=== PATIENT | female | born 1955 | race Caucasian/White ===

== ENCOUNTER 2020-08-29 15:27 | Emergency (ER) | payer BC, SELFPAY ==
--- NOTE | ~2020-08-29 | CT_ITS ---
EXAMINATION: CT abdomen pelvis w con DATE: 08/29/2020 18:37 INDICATION: Left ureteral stone TECHNIQUE: Computed tomography (CT) of the abdomen and pelvis was performed with 130 cc Omnipaque 350 intravenous contrast. The dose-length product was 881.38 mGy-cm. Automated exposure control and iter ative reconstruction technique were employed. COMPARISON: CT dated 08/29/2020. FINDINGS: Heart size normal. No significant pleural or pericardial effusion. The liver, spleen, pancr eas, adrenal glands and left kidney are unremarkable. There is a right renal cyst measuring 2.4 cm. U reters are normal in course and caliber. There is a 9 x 4 mm stone in the bladder lumen. Gallbladder is present. Nonobstructive bowel gas pattern. IMPRESSION: 1. 9 mm bladder stone. Reviewed, dictated and finalized at location A. IMPRESSION: 1. 9 mm bladder stone.
--- NOTE | ~2020-08-29 | CT_ITS ---
EXAMINATION: CT abdomen pelvis wo con DATE: 08/29/2020 16:01 INDICATION: Flank pain. TECHNIQUE: Computed tomography (CT) of the abdomen and pelvis was performed without intravenous contr ast. The dose-length product was 183.07 mGy-cm. Automated exposure control and iterative reconstructi on technique were employed. COMPARISON: CT abdomen dated 01/13/2016 FINDINGS: Lung bases are unremarkable. Heart size is normal. No significant pleural or pericardial ef fusion. No significant vascular abnormality. No lymphadenopathy. Nonobstructive bowel gas pattern. Th ere is an 11 mm calcification near the expected location of the left UVJ. There is moderate left hydr oureteronephrosis. There is a 6 mm left renal stone. The liver, spleen, pancreas, adrenal glands and right kidney are unremarkable. Nonobstructive bowel g as pattern. There is a fat-containing umbilical hernia. There is mild superior endplate compression d eformity of L2, likely chronic. IMPRESSION: 1. Probable left UVJ stone versus bladder stone measuring 11 mm near the left UVJ. Moderate left hydr onephrosis. 2: Left nephrolithiasis. Reviewed, dictated and finalized at location A. IMPRESSION: 1. Probable left UVJ stone versus bladder stone measuring 11 mm near the left U VJ. Moderate left hydronephrosis. 2: Left nephrolithiasis.
--- NOTE | ~2020-08-29 | XR_ITS ---
XR abdomen/kub 1V 08/29/2020 16:06 INDICATION: Flank pain TECHNIQUE: KUB COMPARISON: CT dated 08/29/2020 FINDINGS: Bowel gas pattern is normal. There is no evidence of free air, mass, organomegaly, ascites or obstruction. There is a 9 mm calcification in the left pelvis near the expected location of the U VJ. There is left nephrolithiasis. The bones appear intact. IMPRESSION: 1: Probable left UVJ stone measuring 9 mm. 2: Left nephrolithiasis. Reviewed, dictated and finalized at location A.
[2020-08-29 15:33] VITALS: BP 126/89; PULSE 85; RESP 18; TEMP 36.2; O2SAT 99
[2020-08-29] MEDS: HYDROmorphone HCL INJ (*CRX) 1 MG/ML SYR 0.5 MG IV PUSH (16:07)
[2020-08-29] MEDS: ONDANSETRON INJ 4 MG/2 ML VIAL IV PUSH (16:07)
[2020-08-29] MEDS: SODIUM CHLORIDE 0.9% IV 1,000 ML 150 ML IV CONT (16:08)
[2020-08-29 16:13] LABS: Basophils Absolute Auto 0.1 K/mm3 (0.0-0.1); Eosinophils Absolute Auto 0.1 K/mm3 (0-0.3); Eosinophils Percent Auto 1.2 % (0-4.4); Hematocrit 42.4 % (37.0-47.0); Hemoglobin 14.1 g/dL (12.0-15.0); Immature Granulocyte Absolute 0.01 K/mm3 (0.00-0.031); Immature Granulocyte Percent A 0.1 % (0-0.5); Lymphocytes Absolute Auto 2.83 K/mm3 (0.9-3.2); Lymphocytes Percent Auto 41.1 % (18.3-44.2); Mean Corpuscular HGB Conc 33.3 g/dl (32-36); Mean Corpuscular Hemoglobin 30.1 pg (26-34); Mean Corpuscular Volume 90.6 fl (80-100); Mean Platelet Volume 8.9 fl (7.4-10.4); Monocytes Absolute Auto 0.7 K/mm3 (0.1-0.6); Monocytes Percent Auto 9.7 % (2.6-8.5); Neutrophils Absolute Auto 3.2 K/mm3 (1.3-6.7); Neutrophils Percent Auto 46.9 % (45.5-73.1); Platelet Count Result 317 k/mm3 (150-375); Red Blood Count 4.68 M/mm3 (4.2-5.4); Red Cell Distribution Width 13.3 % (11.5-14.5); White Blood Count 6.9 K/mm3 (4.5-10.0)
[2020-08-29 16:18] LABS: Add Urine Microscopic? YES; Appearance Urine Cloudy (Clear); Bilirubin Urine Negative (Negative); Blood Urine Negative (Negative); Color Urine Amber (Yellow); Glucose Urine UA Negative (Negative); Ketones Urine Negative (Negative); Leukocyte Esterase Ur Negative LEU/UL (Negative); Mucus Urine Rare /lpf; Nitrate Urine Negative (Negative); Protein Urine Negative (Negative); Specific Grav Ur 1.017 (1.001-1.035); Urobilinogen Urine Negative mg/dL (<2.0); WBC Urine 0-3 /hpf
[2020-08-29 16:26] LABS: Alanine Aminotransferase 33 U/L (4-35); Albumin Level 4.4 g/dL (3.5-5.1); Alkaline Phosphatase 109 U/L (38-126); Anion Gap 6 mmol/L (8-16); Aspartate Amino Transferase 33 U/L (14-36); Bilirubin,Total 0.3 mg/dL (0.2-1.3); Blood Urea Nitrogen 17 mg/dL (7-17); Calcium 9.6 mg/dL (8.4-10.2); Carbon Dioxide 30 mmol/L (22-30); Chloride 105 mmol/L (98-107); Estimated CRCL calculation 61 ml/min; Estimated Glomerular Filt Rate > 60; Glucose 112 mg/dL (65-105); Sodium 141 mmol/L (137-145)
[2020-08-29 17:00] VITALS: BP 136/96; PULSE 87; RESP 18; O2SAT 100
--- NOTE | 2020-08-29 18:33 | ED.ABDPAIN ---
HPI - Abdominal Pain General Chief Complaint: Abdominal Pain Stated Complaint: abd pain Time Seen by Provider: 08/29/20 15:40 Source: patient Mode of arrival: ambulatory Limitations: no limitations History of Present Illness HPI narrative: 64-year-old with a history of kidney stones and diverticulosis here with complaints of sudden onset of left flank pain radiating into her left groin since this afternoon. Patient stated her pain was very intense however it is kind of subsiding on her way to the ER. She denies any fever or chills however she complained of nausea last night. MD elicited complaint: abdominal pain (left lower abd) and flank pain (left) Pertinent past history: diverticulitis and kidney stones Onset (ago): hour(s) (4) Pain Consistency: constant Severity: moderate Quality: stabbing Radiation: LLQ Relieving factors: nothing Associated symptoms: nausea Related Data Home Medications Medication Instructions Recorded Confirmed estradiol 10 mcg vaginal insert 10 mcg VAGINAL 2XW 03/04/20 03/04/20 lisinopril 10 mg tablet 10 mg PO DAILY 03/04/20 03/04/20 Allergies Allergy/AdvReac Type Severity Reaction Status Date / Time codeine Allergy Unknown Unknown Verified 08/29/20 15:44 hydrocodone Allergy Unknown migraine Verified 08/29/20 15:44 morphine Allergy Unknown headache Verified 08/29/20 15:44 Penicillins Allergy Unknown Unknown Verified 08/29/20 15:44 Sulfa (Sulfonamide Allergy Unknown Unknown Verified 08/29/20 15:44 Antibiotics) Review of Systems Review of Systems: All systems reviewed & are unremarkable except as noted in HPI and below Constitutional: Constitutional: Reports no additional constitutional complaints Eyes: Eyes: Reports no additional eye complaints ENT: Reports system reviewed and no additional complaints, except as documented Cardiovascular: Cardiovascular: Reports no additional cardiovascular complaints Respiratory: Respiratory: Reports no additional respiratory complaints Gastrointestinal: Gastrointestinal: Reports no additional gastrointestinal complaints Genitourinary: Genitourinary: Reports as per HPI Neurologic: Reports system reviewed and no additional complaints, except as documented PMF Past Medical History Medical History H/O vaginal delivery x2 History of herniated intervertebral disc History of ovarian cyst Hypertension Kidney stones Surgical History Surgical History H/O neck surgery History of removal of ovarian cyst Previous back surgery Family History Family History Mother Family history of hypercholesterolemia, Onset Age: 88 Hypertension, Onset Age: 88 Father Family history of hypercholesterolemia, Onset Age: 79 Social History Social History Smoking status: Never smoker Second hand tobacco smoke exposure: No Alcohol intake: current Gender identity (if verbalized by the patient): Female Exam Narrative: Exam Narrative: GENERAL: Well-appearing, well-nourished, and in no acute distress. HEAD: Normocephalic, atraumatic. EYES: PERRLA and EOMI NECK: Supple. CHEST: Clear to auscultation. No respiratory distress. HEART: Regular rate and rhythm. No murmur heard. Normal peripheral pulses. ABDOMEN: Soft, mild tenderness in the LLQ, nondistended, normal active bowel sounds. EXTREMITIES: Normal range of motion. No edema. SKIN: Warm, dry, no rash. NEURO: No focal deficits. Alert and oriented x3. PSYCH: Normal mood and affect. Course Course Emergency Course: Patient is much improved after the pain medication and IV fluids I did discuss lab and CT findings with the patient and with Dr. Youssef she recommended CT urethrogram. Repeat CT urogram showed 9 mm stone in the urinary bladder. Patient states that she i
[2020-08-29 19:32] VITALS: BP 128/85; PULSE 80; RESP 16; TEMP 36.8; O2SAT 99
== END 2020-08-29 19:33 | disposition home or self-care (01) ==
PROVIDERS: Emergency Provider Family Medicine; PCP Family Medicine
DX: N13.2 Hydronephrosis with renal and ureteral calculous obstruction (principal); I10 Essential (primary) hypertension; Z87.442 Personal history of urinary calculi; K57.90 Diverticulosis of intestine, part unspecified, without perforation or abscess without bleeding
CPT/HCPCS: 36415; 74018; 74176; 74177; 74178; 80053; 81001; 82365; 85025; 88300; 96361; 96374; 96375; 99284; J1170; J2405; J7030; Q9967

== ENCOUNTER 2023-03-29 19:19 | Emergency (ER) | payer OTHER, SELFPAY ==
--- NOTE | ~2023-03-29 | XR_ITS ---
XR shoulder LT min 2V 03/29/2023 22:16 Indication: Left shoulder fracture Procedure: 3 views left shoulder Comparison: No prior studies for comparison. Findings: There is a mildly displaced comminuted left humeral neck fracture with involvement of the g reater tuberosity. Impression: 1: Comminuted mildly displaced left humeral neck fracture. Reviewed, dictated and finalized at location A. Impression: 1: Comminuted mildly displaced left humeral neck fracture.
[2023-03-29 20:03] VITALS: BP 163/98; PULSE 77; RESP 16; TEMP 36.3; O2SAT 100
--- NOTE | 2023-03-29 23:52 | ED.GENADULT ---
HPI - General Adult General Chief complaint: Fall Stated complaint: fall, shoulder pain Time Seen by Provider: 03/29/23 23:32 History of Present Illness HPI narrative: Patient is 67-year-old female who presents the emergency department with chief complaint of left shoulder pain status post fall. Patient reports that she was moving her grandkids around with a wagon wearing flip-flops and tripped and fell the patient reports she landed on her left upper extremity and reports pain in her left shoulder patient reports she has an abrasion to the palm of her hand her left forehead and also her right great toe. Patient reports no loss of consciousness denies being on blood thinners. Related Data Home Medications Medication Instructions Recorded Confirmed multivitamin (Daily Multi-Vitamin 1 tablet PO DAILY 03/10/21 12/20/22 tablet) Allergies Allergy/AdvReac Type Severity Reaction Status Date / Time codeine Allergy Unknown Unknown Verified 12/20/22 10:33 hydrocodone Allergy Unknown migraine Verified 12/20/22 10:33 morphine Allergy Unknown headache Verified 12/20/22 10:33 Penicillins Allergy Unknown Unknown Verified 12/20/22 10:33 Sulfa (Sulfonamide Allergy Unknown Unknown Verified 12/20/22 10:33 Antibiotics) Review of Systems Review of Systems: A 10 system review of systems was completed on the patient and is negative except for what is stated in the HPI. Nursing and ancillary documentation was reviewed. [facility] Past Medical History Medical History Depression Essential (primary) hypertension History of herniated intervertebral disc History of ovarian cyst Hypertension Kidney stones Major depressive disorder, recurrent, in partial remission Mixed hyperlipidemia Surgical History Surgical History H/O neck surgery H/O vaginal delivery x2 History of hysterectomy History of removal of ovarian cyst Previous back surgery Family History Family History Mother Family history of hypercholesterolemia, Onset Age: 88 Hypertension, Onset Age: 88 Father Family history of hypercholesterolemia, Onset Age: 79 Social History Social History Smoking status: Never smoker Second hand tobacco smoke exposure: No Alcohol intake: current Substance use: never Lack of Transportation: No Lack of Food: Never True Current Housing: I Have Housing Concerned About Future Housing: No Difficulty Paying Gas/Electric Bills: No Difficulty Paying for Meds: No Currently Unemployed: No Education: Trade/Vocational Certificate Difficulty w/ Childcare or Family Care: No Living arrangements: with family Occupation/Education: retired Gender identity (if verbalized by the patient): Female Sexual Orientation (if Verbalized by the Patient): Straight or Heterosexual Spiritual care concerns: No Exam Narrative: GENERAL: Well-appearing, well-nourished, and in no acute distress. HEAD: Normocephalic, small abrasion to the left eyebrow. EYES: PERRLA and EOMI. ENT: Nares clear, no rhinorrhea or epistaxis. Mucous membranes moist. NECK: Supple. CHEST: Clear to auscultation. No respiratory distress. HEART: Regular rate and rhythm. No murmur heard. Normal peripheral pulses. ABDOMEN: Soft, nontender, nondistended, normal active bowel sounds. EXTREMITIES: Normal range of motion tenderness to palpation of the left shoulder, there is an abrasion present to the palm of the left hand there is an abrasion present to the right great toe. No edema. SKIN: Warm, dry, no rash. NEURO: No focal deficits. Alert and oriented x3. PSYCH: Normal mood and affect. Course Vital Signs Vital signs: Vital Signs Temperature 36.3 C L 03/29/23 20:03 Pulse
[2023-03-30] MEDS: oxyCODONE/ACETAMINOPHEN (*CRX) 5-325 MG TABLET 1 TABLET PO (00:09)
--- NOTE | 2023-03-30 00:47 | PC.NURSE ---
Pain to L shoulder. PMS intact. Pt brought sling from home.
[2023-03-30 01:35] VITALS: BP 152/81; PULSE 87; RESP 16; O2SAT 100
== END 2023-03-30 01:00 | disposition home or self-care (01) ==
PROVIDERS: Emergency Provider Emergency Medicine; PCP Family Medicine
DX: S42.212A Unspecified displaced fracture of surgical neck of left humerus, initial encounter for closed fracture (principal); S60.512A Abrasion of left hand, initial encounter; S00.81XA Abrasion of other part of head, initial encounter; S90.411A Abrasion, right great toe, initial encounter; I10 Essential (primary) hypertension; E78.2 Mixed hyperlipidemia; F33.41 Major depressive disorder, recurrent, in partial remission; Z87.442 Personal history of urinary calculi; Z90.710 Acquired absence of both cervix and uterus; W18.39XA Other fall on same level, initial encounter
CPT/HCPCS: 73030; 99284; A9270

== ENCOUNTER 2024-02-22 12:50 | Outpatient (CLI) | payer OTHER, SELFPAY ==
--- NOTE | ~2024-02-22 | DEXA_ITS ---
Bone Density Report Name: MARLY NARAYANAN Age: 68 Sex: Female Ethnicity: White Date of : 1955 Indication: postmenopausal; screening for osteoporosis; history of glucocorticoids; hysterectomy; Referring Provider: MARCEL, ROBERT Carmona Study: Bone densitometry was performed. Exam Date: February 22, 2024 Accession number: [id number] Bone Density: Region BMD T-score Z-score Classification AP Spine(L1-L4) 0.865 -1.7 0.2 Osteopenia Femoral Neck (Left) 0.663 -1.7 -0.1 Osteopenia Total Hip (Left) 0.844 -0.8 0.5 Normal Femoral Neck (Right) 0.640 -1.9 -0.3 Osteopenia Total Hip (Right) 0.734 -1.7 -0.4 Osteopenia Total Hip Mean 0.789 -1.3 0.1 Osteopenia World Health Organization criteria for BMD impression classify patients as: Normal (T-score at or above -1.0), Osteopenia (T-score between -1.0 and -2.5), or Osteoporosis (T-score at or below -2.5). 10-year Fracture Risk(1): Major Osteoporotic Fracture 16% Hip Fracture 2.5% Reported Risk Factors: [place] (), Neck BMD=0.640, BMI=28.4, glucocorticoids (1) FRAX(R) Version 3.08. Fracture probability calculated for an untreated patient. Fracture probability may be lower if the patient has received treatment. Clinical Information Provided by Patient: Has taken Glucocorticoids Has used the following medications: Vitamin D, Calcium Has the following medical conditions: Hysterectomy Patient maximum height was 64 Menopause Age: 38 No regular weight bearing exercise Drinks caffeinated beverages Onset of menses at age 12 Number of children 2 Impression: The patient has low bone mass, based on the Right Femoral Neck T-score. The patient has an estimated ten-year risk of hip fracture of 2.5% and an estimated ten-year risk of major fracture of 16%, based on the WHO FRAX algorithm. The patient has risk factors, including: history of glucocorticoid therapy. Discussion: BONE DENSITY IS LOW AT ONE OR MORE SKELETAL SITES. This patient's lowest T-score is low at one or more skeletal sites. It meets the World Health Organization's (WHO) criteria for ?low bone mass? (T-score between -1.0 and -2.5). The patient's 10-year risk of fracture as calculated by FRAX is less than the threshold where pharmacological therapy is recommended by the National Osteoporosis Foundation (NOF). However, all treatment decisions require clinical judgment and consideration of individual patient factors, including patient preferences, comorbidities, previous drug use, risk factors not captured in the FRAX model (e.g., frailty, falls, vitamin D deficiency, increased bone turnover, interval significant decline in bone density) and possible under or overestimation of fracture risk by FRAX. The patient should follow a healthful lifestyle (good nutrition with adequate calcium and
== END 2024-02-22 12:51 | disposition home or self-care (01) ==
LOC: ANHIMG 12:52
PROVIDERS: PCP Family Medicine; Visit Provider Physician Assistant
DX: M85.89 Other specified disorders of bone density and structure, multiple sites (principal); Z78.0 Asymptomatic menopausal state; Z13.820 Encounter for screening for osteoporosis
CPT/HCPCS: 77080

== ENCOUNTER 2024-09-19 08:49 | Outpatient (CLI) | payer OTHER, SELFPAY ==
--- NOTE | ~2024-09-19 | MM_ITS ---
EXAMINATION: MM screening delbret BI w sy[place]ney HISTORY: Screening TECHNIQUE: Craniocaudal and mediolateral oblique 3-D tomosynthesis images were obtained and synthetic 2-D images were generated. CAD analysis was submitted and interpreted. COMPARISON: No prior mammogram is available for comparison at this institution. BREAST PARENCHYMAL COMPOSITION: Not dense: There are scattered areas of fibroglandular density. FINDINGS: There is no evidence of suspicious mass, calcification, or architectural distortion to sugg est malignancy in either breast. There has been no suspicious interval change. IMPRESSION: 1. No mammographic evidence of malignancy. 2. Recommend routine screening mammography in one year. BI-RADS Category 1: Negative Reviewed, dictated and finalized at location A.
--- OUTSIDE RECORDS SUMMARY | 2024-09-19 08:57 | XMS_ITS | Clinical Summary ---
Author Organization [facility] Address [address] [place] [address] Care Team Providers Care Cane Feeder Name Role Phone Kiah Fox MD Unavailable [phone] Arthur Luna MD Primary Care Provider [phone] Source Comments [facility],non-owned Affiliates and Associated Physician Practices is amultiple site organization consisting of ambulatory clinics and hospital sitesin [place], [place], [place] and [place]. This disclosure is being madepursuant to the Care Everywhere program and may not contain all information available regarding this patient. Last updated 18.[facility] Allergies Active Allergy Reactions Criticality Noted Date Comments Codeine Unknown Low 03/05/2012 GI intolerance Penicillins 04/21/2008 Sulfa Drugs 04/21/2008 Medications * Be aware that medications may not be up to date on this document. Alwaysverify current medications with the patient. Medication Sig Dispensed Refills Start Date End Date Status Calcium-Vitamin D 500 MG TABS Take by mouth. Active MULTI-VITAMIN PO Take by mouth. Acti ve clindamycin (CLEOCIN) 150 MG capsule TAKE 4 CAPSULES BY MOUTH 1 HOUR BEFORE DENTAL APPOINTMENT 10/05/2020 Active estradiol (VAGIFEM) 10 MCG vaginal tablet 05/31/2021 Active ezetimibe (ZETIA) 10 MG tablet 07/14/2021 Active losartan (COZAAR) 25 MG tablet 07/29/2021 Active sertraline (ZOLOFT) 50 MG tablet 07/14/2021 Active Magnesium 400 MG Active [place] 3-6-9 Fatty Acids (OMEGA-3-6-9 PO) Active Ginkgo Biloba (GINKOBA PO) Active SUPER B COMPLEX/C PO Acti ve Turmeric (QC TUMERIC COMPLEX PO) Active vitamin D3 (CHOLECALCIFEROL) 100 MCG (4000 UT) tablet Take 4,000 Units by mouth once daily Active Glucosamine-Chondroi t-Vit C-Mn (GLUCOSAMINE 1500 COMPLEX) CAPS Active Cinnamon 500 MG Active Active Problems Problem Noted Date Diagnosed Date Screening for condition 04/21/2008 Overview (03/18/2015): Adult Abstraction Problem List Screening Dexa Scan (Bone Density): Result: 06/2006 Pap Smear: Result: 11/2005 Mammogram: Result: 11/2006 Vitamin D deficiency 04/21/2008 Hot flashes 04/21/2008 Ovarian cyst 04/21/2008 Social History Tobacco Use Types Packs/Day Years Used Date Smoking Tobacco: Never Smokeless Tobacco: Never Alcohol Use Standard Drinks/Week Comments Yes 0 (1 standard drink = 0.6 oz pur e alcohol) rare Sex and Gender Information Value Date Recorded Sex Assigned at Not on file Gender Identity Not on file Sexual Orientation Not on file Last Filed Vital Signs Vital Sign Reading Time Taken Comments Blood Pressure 127/80 08/08/2021 8:58 AM TRAILER RENTAL CLERK Pulse 87 08/08/2021 8:58 AM TRAILER RENTAL CLERK Temperature 36.9 C (98.4 F) 08/08/2021 8:58 AM TRAILER RENTAL CLERK Respiratory Rate 18 08/08/2021 8:58 AM TRAILER RENTAL CLERK Oxygen Saturation 97% 08/08/2021 8:58 AM TRAILER RENTAL CLERK Inhaled Oxygen Concentration - - Weight 73.9 kg (163 lb) 08/08/2021 8:58 AM TRAILER RENTAL CLERK Height - - Body Mass Index - - Plan of Treatment Health Maintenance Due Date Last Done Comments BONE DENSITY TESTING 1955 COLOGUARD (AGES 45-75) - COL ON CA SCREENING 1955 COLON MONITORING 1955 COLONOSCOPY - COLON CA SCREENING 1955 CT COLONOGRAPHY - COLON CA SCREENING 1955 Colorectal Cancer Screening 1955 FIT - COLON CA SCREENING 1955 FLEX SIG - COLON CA SCREENING 1955 LIPID TESTING 1955 MAMMOGRAM 1955 HEPATITIS C SCREENING 12/09/1975 DTAP/TDAP/TD VACCINES (1 - Tdap) 1976 PNEUMOCOCCAL VACCINE 50+ (1 of 1 - PCV) 12/14/2007 ZOSTER VACCINE (1 of 2) 12/14/2007 COVID-19 VACCINE (1 - 2023-2 5 season) 2024 DEPRESSION SCREENING 06/18/2024 INFLUENZA VACCINE (Season Ended) 2025 Respiratory Syncytial Virus (RSV) Vaccine Pt: or over 60 yrs (1 - 1-dose 75+ series) 2032 HEPATITIS B VACCINE Aged Out No longe r eligible based on patient's age to complete this topic HIB VACCINE Aged Out No longer eligi ble based on patient's age to complete this topic HPV VACCINE Aged Out No longer eligi ble based on patient's age to complete this topic MENINGOCOCCAL (Group B) VACC INE SHARED DECISION-MAKING Aged Out No longer eligibl e based on patient's age to complete this topic MENINGOCOCCAL GROUPS A/C/Y/W VACCINE Aged Out No longer eligible b ased on patient's age to complete this topic Care Teams Cane Feeder Relationship Specialty Start Date End Date Kiah Fox MD [address] [place] [place] [address] PCP - OBGYN 04/21/08 Arthur Luna MD [address] [place] [id number] PCP - General 09/13/20
--- OUTSIDE RECORDS SUMMARY | 2024-09-19 08:57 | XMS_ITS | Clinical Summary ---
Author Organization [facility] Address [address] [place] [id number] Care Team Providers Care Outsoles Channel Opener Name Role Phone Arthur Luna MD Primary Care Provider [phone] Social History Tobacco Use Types Packs/Day Years Used Date Smoking Tobacco: Never Assessed Comments No Sex and Gender Information Value Date Recorded Sex Assigned at Not on file Legal Sex Female 8:03 PM CDT Gender Identity Not on file Sexual Orientation Not on file Plan of Treatment Health Maintenance Due Date Last Done Comments Colorectal Cancer Screening Colonoscopy (10 Years) 1955 Hepatitis C 12/14/1975 DTaP, Tdap and Td Vaccines (1 - Tdap) 1976 Pneumococcal Vaccine: 65+ Years (1 of 1 - PCV) 2022 COVID-19 Vaccine ( season) 2024 05/24/2021, 09/05/2020, 08/15/2020 Influenza Adult (#1) 2024 03/29/2022, 04/01/2021, 03/20/2020, Additional history exists Mammogram Screening 05/05/2024 05/05/2022, 03/18/2021, 06/06/2019, Additional history exists RSV Immunization or 60+ Years (1 - 1-dose 75+ series) 2032 Dexa Scan (General) Completed 05/29/2018 Zoster Vaccines Completed 12/24/2018, 10/04/2018 Meningococcal B Vaccine Aged Out No l onger eligible based on patient's age to complete this topic Meningococcal Vaccine Aged Out No cornell teri eligible based on patient's age to complete this topic RSV Immunizations Under 20 Months Aged Out No longer eligible based on patient's age to complete this topic Procedures Procedure Name Priority Date/Time Associated Diagnosis Comments MG SCREENING W NEELIMA KARINA DIGI Routine 05/05/2022 11:08 AM MEDICAL BILLING ASSOCIATE Encounter for screening mammogram for malignant neoplasm of breast BONE DENSITY/DEXA Routine 05/29/2018 10: 56 AM MEDICAL BILLING ASSOCIATE Postmenopausal from Last 3 Months or Most Recently Relevant to Health Maintenance Results * MG SCREENING W NEELIMA KARINA DIGI (05/05/2022 11:08 AM MEDICAL BILLING ASSOCIATE) Anatomical Region Laterality Modality Breast Bilateral Mammography 05/05/2022 12:1 6 PM MEDICAL BILLING ASSOCIATE Narrative 05/05/2022 12:17 PM MEDICAL BILLING ASSOCIATE Examination: Screening bilateral mammogram Exam Date/Time: 05/05/2022 10:50 AM Clinical history: No current complaints Comparison: 04/07/2021 Technique: Digital screening mammography of both breasts was performed. Breast tomosynthesis acquisitions were obtained and reviewed. This study was read with the assistance of a computer-aided detection system. Tissue density: There are scattered areas of fibroglandular density. Findings: No suspicious masses, malignant appearing calcifications, skin thickening or other abnormalities are present. No significant change from the prior exam. IMPRESSION: No suspicious mammographic findings. Recommendation: 1. Routine Screening, Bilateral Assessment: ACR BI-RADS 2 - BENIGN FINDING(S) Ordered By: ELIZA ALVAREZ Interpreted By: Yariel Angulo, 05/05/2022 12:16 PM us Eliza Alvarez MD MAMMO Final Result * BONE DENSITY/DEXA (05/29/2018 10:56 AM MEDICAL BILLING ASSOCIATE) Anatomical Region Laterality Modality Bone Mammography 05/29/2018 11:0 6 AM MEDICAL BILLING ASSOCIATE Impressions 05/29/2018 11:10 AM MEDICAL BILLING ASSOCIATE Impression: BMD measured at AP lumbar spine, both femoral necks and right total hip at WHO category level of osteopenia. BMD measured at left total hip at level of normal. Narrative 05/29/2018 11:10 AM MEDICAL BILLING ASSOCIATE 05/29/2018 Examination: DEXA Bone densitometry Clinical history: Postmenopausal. Prior fracture. Parent with hip fracture. Calcium supplementation. Vitamin D use. Prior hysterectomy. Dairy product consumption. Technique: DEXA bone minimal density evaluation was performed in the AP projection over the lumbar spine and over both hips in the AP projection utilizing standard imaging techniques. Assessment: The BMD measured at the AP spine L1-L4 is 0.820 g/cm2 with a T-score of -2.1 and a Z-Score of -0.6. The patient is considered osteopenic according to World Health Organization (WHO) criteria. Bone density is between 10 and 25% below young normal. Fracture risk is moderate. Treatment is advised. The BMD measured at the femur total left is 0.854 g/cm2 with a T-score of -0.7 and a Z-Score of 0.2. Bone density is up to 10% below young normal. This patient is considered normal according to the World Health Organization (WHO) criteria. Fracture risk is low. The BMD measured at the left femoral neck is 0.656 g/sq cm resulting in a T score of -1.7 and a Z score -0.4, values at the WHO category level of osteopenia. The BMD measured at the femur total right is 0.791 g/cm2 with a T-score of -1.2 and aZ-Score of -0.3. The patient is considered osteopenic according to World Health Organization (WHO) criteria. Bone density is between 10 and 25% below young normal. Fracture risk is moderate. Treatment is advised. The BMD measured at the right femoral neck is 0.683 g/sq cm resulting in a T score of -1.5 and a Z score -0.2, values at the WHO category level of osteopenia. FRAX results: 10 year probability of major osteoporotic fracture 26% and of hip fracture 1.3%. Recommendations: All patients should ensure an adequate intake of dietary calcium and vitamin D. The NOF recommend adults under the age of 50 need 1000 mg of calcium and 400-800 IU of vitamin D daily. Effective therapy for the prevention and treatment of osteoporosis include biphosphonates. Follow-up: People with diagnosed cases of osteoporosis or at high risk for fracture should have regular bone mineral density test. For patients eligible for Medicare, routine testing is allowed once every 2 years. Testing frequency can be increased to one year for patients who have rapidly progressing disease, those who are receiving or discontinuing medical therapy to restore bone mass, or have additional risk factors. Based on these results, a followup exam is recommended in no earlier than 2 years for routine follow-up. As early as 1 year for assessment of efficacy of new medication therapy for treatment of osteoporosis. Procedure Note Alessandro Hsu MD - 05/29/2018 05/29/2018 Examination: DEXA Bone densitometry Clinical history: Postmenopausal. Prior fracture. Parent with hipfracture. Calcium supplementation. Vitamin D use. Prior hysterectomy. Dairyproduct consumption. Technique: DEXA bone minimal density evaluation was performed in the AP projection over the lumbar spine and over both hips in the AP projection utilizing standard imaging techniques. Assessment: The BMD measured at the AP spine L1-L4 is 0.820 g/cm2 with a T-score of -2.1 and a Z-Score of -0.6. The patient is considered osteopenic according to World Health Organization (WHO) criteria. Bone density is between 10 and 25% below young normal. Fracture risk is moderate.Treatment is advised. The BMD measured at the femur total left is 0.854 g/cm2 with a T-scoreof -0.7 and a Z-Score of 0.2. Bone density is up to 10% below youngnormal. This patient is considered normal according to the World Health Organization (WHO) criteria. Fracture risk is low. The BMD measured at the left femoral neck is 0.656 g/sq cm resulting in aT score of -1.7 and a Z score -0.4, values at the WHO category level of osteopenia. The BMD measured at the femur total right is 0.791 g/cm2 with a T-scoreof -1.2 and aZ-Score of -0.3. The patient is considered osteopenic according to World Health Organization (WHO) criteria. Bone density is between 10 and 25% below young normal. Fracture risk is moderate.Treatment is advised. The BMD measured at the right femoral neck is 0.683 g/sq cm resulting dilcia T score of -1.5 and a Z score -0.2, values at the WHO category level of osteopenia. FRAX results: 10 year probability of major osteoporotic fracture 26% andof hip fracture 1.3%. Recommendations: All patients should ensure an adequate intake of dietary calcium and vitamin D. The NOF recommend adults under the age of 50 need 1000 mg of calcium and 400-800 IU of vitamin D daily. Effective therapy for the prevention and treatment of osteoporosis include biphosphonates. Follow-up: People with diagnosed cases of osteoporosis or at high risk for fracture should have regular bone mineral density test. For patients eligible for Medicare, routine testing is allowed once every 2 years. Testingfrequency can be increased to one year for patients who have rapidly progressing disease, those who are receiving or discontinuing medical therapy to restore bone mass, or have additional risk factors. Based on these results, a followup exam is recommended in no earlier than2 years for routine follow-up. As early as 1 year for assessment ofefficacy of new medication therapy for treatment of osteoporosis. Impression: BMD measured at AP lumbar spine, both femoral necks and right total hipat WHO category level of osteopenia. BMD measured at left total hip at level of normal. Eliza Alvarez MD DEXA Final Result from Last 3 Months or Most Recently Relevant to Health Maintenance Insurance [facility] Care Teams Outsoles Channel Opener Relationship Specialty Start Date End Date Arthur Luna MD [address] [place] [id number] PCP - General FAMILY PRACTICE 05/14/17
== END 2024-09-19 08:50 | disposition home or self-care (01) ==
LOC: ANHIMG 08:52
PROVIDERS: PCP Family Medicine; Visit Provider Obstetrics & Gynecology
DX: Z12.31 Encounter for screening mammogram for malignant neoplasm of breast (principal)
CPT/HCPCS: 77063; 77067